=== PATIENT | female | born 1975 | race Caucasian/White ===

== ENCOUNTER 2021-09-10 14:45 | Emergency (ER) | payer BC ==
[~2021-09-10] VITALS: Ht 157.5 cm; Wt 63.5 kg
[2021-09-10 14:46] VITALS: BP 137/91
[2021-09-10] MEDS ORDERED: NACL 0.9% 1,000 ML IV ONE (15:00)
[2021-09-10 15:39] LABS: BASOPHILS # (AUTO) 0.1 K/uL (0.00-0.22); BASOPHILS % (AUTO) 0.5 % (0.0-2.0); EOSINOPHILS # (AUTO) 0.4 K/uL (0-0.4); EOSINOPHILS % (AUTO) 3.3 % (0.0-4.0); HEMATOCRIT 45.1 % (36-48); LYMPHOCYTES # (AUTO) 2.7 K/uL (2.5-16.5); LYMPHOCYTES % (AUTO) 23.7 % (20.5-51.1); MEAN CORPUSCULAR HEMOGLOBIN 32 pg (27-31); MEAN CORPUSCULAR HGB CONC 33 g/dL (33-37); MEAN CORPUSCULAR VOLUME 95.4 fL (80-94); MONOCYTES # (AUTO) 0.5 K/uL (0.8-1.0); MONOCYTES % (AUTO) 4.1 % (1.7-9.3); NEUTROPHILS # (AUTO) 7.8 K/uL (1.8-7.7); NEUTROPHILS % (AUTO) 68.4 % (42.2-75.2); PLATELET COUNT (AUTO) 208 K/uL (140-450); RED BLOOD CELL COUNT(AUTO) 4.73 MIL/uL (4.20-5.40); RED CELL DISTRIBUTION WIDTH 13.4 % (11.6-13.7); WHITE BLOOD COUNT (AUTO) 11.4 K/uL (4.8-10.8)
[2021-09-10 16:01] LABS: ALBUMIN 4.5 g/dL (3.4-5.0); ANION GAP 15.4 (8-16); CARBON DIOXIDE 25.9 mmol/L (21-32); CREATININE 0.7 mg/dL (0.6-1.3); POTASSIUM 3.3 mmol/L (3.5-5.1); TOTAL BILIRUBIN 0.7 mg/dL (0.0-1.0)
[2021-09-10 16:10] LABS: CREATINE KINASE MB 2.8 ng/mL (0-3.6)
[2021-09-10] MEDS ORDERED: POTASSIUM CHLORIDE 10 MEQ TABER PO ONE (16:20)
[2021-09-10 16:42] VITALS: BP 122/76
== END 2021-09-10 16:42 | disposition home or self-care (01) ==
LOC: MED 14:45
DX: R55 Syncope and collapse (principal); I10 Essential (primary) hypertension; Z71.6 Tobacco abuse counseling; J44.9 Chronic obstructive pulmonary disease, unspecified; F17.210 Nicotine dependence, cigarettes, uncomplicated
CPT/HCPCS: 36415; 71045; 80053; 82550; 82553; 84484; 85025; 93005; 96360; 96361; 99285; J7030; Q0092